=== PATIENT | male | born 1970 | race Caucasian/White ===

== ENCOUNTER 2016-07-14 12:04 | Emergency (ER) | payer MEDICAID ==
[2016-07-14] MEDS ORDERED: EPINEPHRine /Lidocaine 1% 20 mL Vial INJ ONE (12:31)
--- NOTE | 2016-07-14 12:53 | ED Physician Chart ---
Chief Complaint/HPI - Patient Information Date Seen:: 07/14/16 Time Seen:: 12:32 Chief Complaint:: cut rt leg History of Present Illness:: pt was at work 1/2 hr ago and he was pulling out a doshi from the ground when he fell bakc and a large stick grazed his rt inner thigh. he has a cut there. he denies that the stick or foreign material entered deep through the wound. cant recall last d tet. Allergies:: Allergies Allergy/AdvReac Type Severity Reaction Status Date / Time No Known Allergies Allergy Verified 07/14/16 12:18 Vitals:: Vital Signs - 8 hr 07/14/16 12:19 Temp 97.5 F HR 70 RR 15 BP 124/87 O2 Sat % 97 Historian:: Patient Review of Systems - Review of Systems General/Constitutional: No fever, No chills, No weight loss, No weakness, No diaphoresis, No edema, No loss of appetite Skin: No skin lesions, No rash, No bruising Head: No headache, No light-headedness Eyes: No loss of vision, No pain, No diplopia ENT: No earache, No nasal drainage, No sore throat, No tinnitus Neck: No neck pain, No swelling, No thyromegaly, No stiffness, No mass noted Cardio Vascular: No chest pain, No palpitations, No PND, No orthopnea, No edema Pulmonary: No SOB, No cough, No sputum, No wheezing GI: No nausea, No vomiting, No diarrhea, No pain, No melena, No hematochezia, No constipation, No hematemesis G/U: No dysuria, No frequency, No hematuria Musculoskeletal: No bone or joint pain, No back pain, No muscle pain Endocrine: No polyuria, No polydipsia Psychiatric: No prior psych history, No depression, No anxiety, No suicidal ideation Hematopoietic: No bruising, No lymphadenopathy Allergic/Immuno: No urticaria, No angioedema Neurological: No syncope, No focal symptoms, No weakness, No paresthesia, No headache, No seizure, No dizziness, No confusion, No vertigo Past Medical History - Past Medical History Past Medical History: No significant medical hx Social History: No Drug Use Medication: None Physical Exam - Physical Examination General/Constitutional: Awake, Well-developed, well-nourished, Alert, No distress, GCS 15, Non-toxic appearing, Ambulatory Head: Atraumatic Eyes: Lids, conjuctiva normal, PERRL, EOMI Skin: Nl inspection, No rash, No skin lesions, No ecchymosis, Well hydrated, No lymphadenopathy ENMT: External ears, nose nl, Nasal exam nl, Lips, teeth, gums nl Neck: Nontender, Full ROM w/o pain, No JVD, No nuchal rigidity, No bruit, No mass, No stridor Respiratory: Nl effort/Exclusion, Clear to Auscultation, No Wheeze/Rhonchi/Rales Cardio Vascular: RRR, No murmur, gallop, rubs, NL S1 S2 GI: No tenderness/rebounding/guarding, No organomegaly, No hernia, Normal BS's, Nondistended, No mass/bruits, No McBurney tenderness : No CVA tenderness Extremities: No tenderness or effusion, Full ROM, normal strength in all extremities, No edema, Normal digits & nails Other Extremities comments:: rt medial mid thigh has a 5 cm orizonal jagged lac through to sq fat. no active bleed. no exposed tendon or muscle. 1 intact superficial nerve is identified crossing wound. minimal fb debris is seen but suspected due to mechanism and extra efforts made to clean wound thooughly w irrigation and exploration. Neuro/Psych: Alert/oriented, DTR's symmetric, Normal sensory exam, Normal motor strength, Judgement/insight normal, Mood normal, Normal gait, No focal deficits Other Neuro/Psych comments:: nrmkl strngth /sens in leg. Misc: normal gait, Normal back, No paraspinal tenderness Assessment Location:: lac rt thigh rt medial mid thigh has a 5 cm orizonal jagged lac through to sq fat. no active bleed. no exposed tendon or muscle. 1 intact superficial nerve is identified crossing wound. minimal fb debris is seen but suspected due to mechanism and extra efforts made to clean wound thooughly w irrigation and exploration. wound explored and flushed. betadyne prep. lido 1 pct plus epi 10 ml local. wound closed w 5x 3.0 nylon w good approximation rx keflex and t #3. pt to ret for wound check and sr or see pmd in 2 wks. return if infection. ED Septic Shock - . Is Septic Shock (SBP<90, OR Lactate>4 mmol\L) present?: No - <6hrs of presentation: Vital Signs: Vital Signs - 8 hr 07/14/16 12:19 Temp 97.5 F HR 70 RR 15 BP 124/87 O2 Sat % 97 Reassessment (Disposition) - Reassessment Reassessment Condition:: Improved - Diagnosis Diagnosis:: 5 cm lac rt thigh...s/p sutured in ED - Aftercare/Follow up Instructions Aftercare/Follow-Up Instructions:: Counseled pt regarding lab results/diagnosis & need follow up - Patient Disposition Discharge/Transfer:: Home Condition at Disposition:: Improved
== END 2016-07-14 13:40 | disposition home or self-care (01) ==
LOC: ER 12:04
DX: S71.121A Laceration with foreign body, right thigh, initial encounter (principal); W01.10XA Fall on same level from slipping, tripping and stumbling with subsequent striking against unspecified object, initial encounter; Y93.89 Activity, other specified; Y92.89 Other specified places as the place of occurrence of the external cause; Y99.8 Other external cause status
CPT/HCPCS: A4217; X6444; Z7502; Z7610

== ENCOUNTER 2018-04-30 16:04 | Emergency (ER) | payer MEDICAID ==
[2018-04-30] MEDS ORDERED: Tetracaine 0.5% Ophth Soln 15 mL Soln RIGHT EYE ONE (16:33)
[2018-04-30] MEDS ORDERED: TETRACAINE HCL 0.5% OPHTH SOLN 4ML BOTTLE ONE (16:34)
[2018-04-30] MEDS ORDERED: Fluorescein Sodium 1 mg Ophth Strip ONE (16:34)
[2018-04-30] MEDS ORDERED: Fluorescein Sodium 1 mg Ophth Strip RIGHT EYE ONE (16:34)
[2018-04-30] MEDS ORDERED: Dacriose Ophth Soln 120 mL Bottle RIGHT EYE ONE (16:34)
[2018-04-30] MEDS ORDERED: Dacriose Ophth Soln 120 mL Bottle ONE (16:34)
--- NOTE | 2018-04-30 18:07 | ED Physician Chart ---
ED Chief Complaint/HPI - Patient Information Date Seen:: 04/30/18 Time Seen:: 16:58 Chief Complaint:: suspected foreign body right eye History of Present Illness:: suspected foreign body right eye from yesterday. Visual acuity on the right is 20/70 and on the left is 20/30. Allergies:: Allergies Allergy/AdvReac Type Severity Reaction Status Date / Time No Known Allergies Allergy Verified 07/14/16 12:18 Vitals:: Vital Signs - 8 hr 04/30/18 16:58 Temp 98.0 F HR 88 RR 17 BP 135/97 O2 Sat % 97 Historian:: Patient Review:: Nurse's Note Reviewed ED Review of Systems - Review of Systems General/Constitutional: No fever, No chills, No weight loss, No weakness, No diaphoresis, No edema, No loss of appetite Skin: No skin lesions, No rash, No bruising Head: No headache, No light-headedness Eyes: Acuity change, Pain, Other (photophobia; right eye foreign body sensation ) ENT: No earache, No nasal drainage, No sore throat, No tinnitus Neck: No neck pain, No swelling, No thyromegaly, No stiffness, No mass noted Cardio Vascular: No chest pain, No palpitations, No PND, No orthopnea, No edema Pulmonary: No SOB, No cough, No sputum, No wheezing GI: No nausea, No vomiting, No diarrhea, No pain, No melena, No hematochezia, No constipation, No hematemesis G/U: No dysuria, No frequency, No hematuria Musculoskeletal: No bone or joint pain, No back pain, No muscle pain Endocrine: No polyuria, No polydipsia Psychiatric: No prior psych history, No depression, No anxiety, No suicidal ideation Hematopoietic: No bruising, No lymphadenopathy Allergic/Immuno: No urticaria, No angioedema Neurological: No syncope, No focal symptoms, No weakness, No paresthesia, No headache, No seizure, No dizziness, No confusion, No vertigo ED Past Medical History - Past Medical History Obtainable: Yes Past Medical History: No significant medical hx Family Medical History - Family Member Mother History Unknown: Yes ED Physical Exam - Physical Examination General/Constitutional: Awake Eyes: PERRL, EOMI Other Eyes comments:: right sclerae injected. Right eye with corneal foreign body at 8 oclock. Lights up with fluorescin. Attempts made to remove right eye foreign body with 23 gauge needle, 25 gauge needle and 11 blade. Part of metal removed, but not full amount of foreign body removed. Patient would like to go where there is an retail operations specialist business travel consultant. He is waiting for his friend to come and pick him up to take him to an emergency room where an retail operations specialist is available. Skin: Nl inspection, No rash, No skin lesions, No ecchymosis, Well hydrated, No lymphadenopathy Neck: Nontender, No nuchal rigidity, No stridor Respiratory: Nl effort/Exclusion, Clear to Auscultation, No Wheeze/Rhonchi/Rales Cardio Vascular: RRR Neuro/Psych: Alert/oriented, Normal sensory exam, Normal motor strength, Judgement/insight normal, Mood normal, Normal gait, No focal deficits ED Assessment - Assessment General Assessment: Attempts made to remove right eye foreign body with 23 gauge needle, 25 gauge needle and 11 blade. Part of metal removed, but not full amount of foreign body removed. Patient would like to go where there is an retail operations specialist business travel consultant. He is waiting for his friend to come and pick him up to take him to an emergency room where an retail operations specialist is available. ED Septic Shock - . Is Septic Shock (SBP<90, OR Lactate>4 mmol\L) present?: No - <6hrs of presentation: Vital Signs: Vital Signs - 8 hr 04/30/18 16:58 Temp 98.0 F HR 88 RR 17 BP 135/97 O2 Sat % 97 ED Reassessment (Disposition) - Reassessment Reassessment Condition:: Unchanged - Diagnosis Diagnosis:: Retained foreign body right cornea, suspected metal. - Patient Disposition Discharge/Transfer:: Against Medical Advice Condition at Disposition:: Stable, Unchanged
== END 2018-04-30 18:23 | disposition left against medical advice (07) ==
LOC: ER 16:04
DX: T15.01XA Foreign body in cornea, right eye, initial encounter (principal); H44.791 Retained (old) intraocular foreign body, nonmagnetic, in other or multiple sites, right eye; X58.XXXA Exposure to other specified factors, initial encounter; Y93.89 Activity, other specified; Y92.89 Other specified places as the place of occurrence of the external cause; Y99.8 Other external cause status
CPT/HCPCS: Z7502